=== PATIENT | male | born 1995 | race Caucasian/White ===

== ENCOUNTER → 2023-05-26 | Outpatient (CLI) | payer OTHER ==
[~2023-05-26] MED LIST: SODIUM CHLORIDE 0.9% 500 ML 500 ML in EMPTY BAG 1 BAG IV PRN
[2023-05-26 08:17] VITALS: BP 109/70; PULSE 80; RESP 16; TEMP 98.4
[2023-05-26 08:40] LABS: Anisocytosis Slight; Basophils # (A) 0.1 k/uL (0-0.2); Basophils % (A) 1 %; Eosinophils # (A) 0.3 k/uL (0-0.7); Eosinophils % (A) 3 %; Lymphocytes # (A) 2.5 k/uL (1.0-4.8); Lymphocytes % (A) 27 %; MCH 28.1 pg (25.0-35.0); MCHC 32.4 g/dL (31.0-37.0); MCV 86.8 fL (80.0-100.0); Mean Platelet Volume 7.7; Monocytes # (A) 0.7 k/uL (0-1.0); Monocytes % (A) 8 %; Neutrophils # (A) 5.7 k/uL (1.3-7.7); Neutrophils % (A) 60 %; Platelet Count 223 k/uL (150-450); RBC 6.82 m/uL (4.30-5.90); RDW 16.5 % (11.5-15.5); WBC 9.4 k/uL (3.8-10.6)
[2023-05-26 08:44] LABS: HCT 59.2 % (39.0-53.0); HGB 19.2 gm/dL (13.0-17.5)
== END ==
LOC: PROCWHC3 08:03
PROVIDERS: ATTEND Internal Medicine
DX: D75.1 Secondary polycythemia (principal)
CPT/HCPCS: 36415; 85025; 99195

== ENCOUNTER → 2023-09-17 | Outpatient (CLI) | payer OTHER ==
[2023-09-17 09:51] VITALS: BP 146/81; PULSE 87; RESP 15; TEMP 97.9
[2023-09-17 09:57] LABS: Anisocytosis Slight; Basophils # (A) 0.1 k/uL (0-0.2); Basophils % (A) 2 %; Eosinophils # (A) 0.3 k/uL (0-0.7); Eosinophils % (A) 4 %; Lymphocytes # (A) 2.4 k/uL (1.0-4.8); Lymphocytes % (A) 26 %; MCH 27.5 pg (25.0-35.0); MCHC 32.3 g/dL (31.0-37.0); Mean Platelet Volume 7.4; Monocytes # (A) 0.5 k/uL (0-1.0); Monocytes % (A) 5 %; Neutrophils # (A) 5.7 k/uL (1.3-7.7); Neutrophils % (A) 62 %; Platelet Count 241 k/uL (150-450); RDW 16.1 % (11.5-15.5); WBC 9.1 k/uL (3.8-10.6)
[2023-09-17 10:02] LABS: HCT 61.1 % (39.0-53.0); HGB 19.8 gm/dL (13.0-17.5)
[2023-09-17 10:10] LABS: RBC 6.66 m/uL (4.30-5.90)
== END ==
LOC: PROCWHC3 09:18
PROVIDERS: ATTEND Internal Medicine
DX: D75.1 Secondary polycythemia (principal)
CPT/HCPCS: 36415; 85025; 99195

== ENCOUNTER → 2023-11-19 | Outpatient (CLI) | payer OTHER ==
[2023-11-19 08:45] LABS: Anisocytosis Slight; Basophils # (A) 0.2 k/uL (0-0.2); Basophils % (A) 2 %; Eosinophils # (A) 0.3 k/uL (0-0.7); Eosinophils % (A) 3 %; Lymphocytes % (A) 23 %; MCH 27.4 pg (25.0-35.0); MCHC 32.3 g/dL (31.0-37.0); Mean Platelet Volume 7.8; Monocytes # (A) 0.4 k/uL (0-1.0); Monocytes % (A) 5 %; Neutrophils # (A) 5.9 k/uL (1.3-7.7); Neutrophils % (A) 66 %; Platelet Count 234 k/uL (150-450); RDW 16.1 % (11.5-15.5); WBC 8.9 k/uL (3.8-10.6)
[2023-11-19 09:03] VITALS: RESP 16; TEMP 98.4
[2023-11-19 09:12] LABS: HCT 59.7 % (39.0-53.0); HGB 19.3 gm/dL (13.0-17.5)
[2023-11-19 09:40] VITALS: BP 120/83; PULSE 81
== END ==
LOC: PROCWHC3 08:16
PROVIDERS: ATTEND Internal Medicine
DX: D75.1 Secondary polycythemia (principal)
CPT/HCPCS: 36415; 85025; 99195

== ENCOUNTER → 2024-03-07 | Outpatient (CLI) | payer OTHER ==
[2024-03-07 09:51] VITALS: RESP 16; TEMP 98.1
[2024-03-07 10:04] LABS: Anisocytosis Slight; Basophils # (A) 0.1 k/uL (0-0.2); Basophils % (A) 2 %; Eosinophils # (A) 0.3 k/uL (0-0.7); Eosinophils % (A) 3 %; Lymphocytes % (A) 23 %; MCH 26.2 pg (25.0-35.0); MCHC 31.3 g/dL (31.0-37.0); MCV 83.8 fL (80.0-100.0); Mean Platelet Volume 7.6; Monocytes # (A) 0.6 k/uL (0-1.0); Monocytes % (A) 7 %; Neutrophils # (A) 5.5 k/uL (1.3-7.7); Neutrophils % (A) 64 %; Platelet Count 259 k/uL (150-450); RDW 16.9 % (11.5-15.5); WBC 8.6 k/uL (3.8-10.6)
[2024-03-07 10:06] LABS: RBC 7.43 m/uL (4.30-5.90)
[2024-03-07 10:08] LABS: HCT 62.3 % (39.0-53.0); HGB 19.5 gm/dL (13.0-17.5)
[2024-03-07 10:59] VITALS: BP 124/67; PULSE 72
== END ==
LOC: PROCWHC3 09:33
PROVIDERS: ATTEND Internal Medicine
DX: D75.1 Secondary polycythemia (principal)
CPT/HCPCS: 36415; 85025; 99195

== ENCOUNTER → 2024-03-16 | Outpatient (CLI) | payer OTHER ==
[2024-03-16 12:26] VITALS: RESP 16
[2024-03-16 12:49] LABS: Anisocytosis Slight; Basophils # (A) 0.2 k/uL (0-0.2); Basophils % (A) 2 %; Eosinophils # (A) 0.2 k/uL (0-0.7); Eosinophils % (A) 2 %; Hypochromasia Slight; Lymphocytes # (A) 2.1 k/uL (1.0-4.8); Lymphocytes % (A) 20 %; MCH 27.9 pg (25.0-35.0); MCHC 32.6 g/dL (31.0-37.0); MCV 85.5 fL (80.0-100.0); Monocytes # (A) 0.7 k/uL (0-1.0); Monocytes % (A) 6 %; Neutrophils # (A) 7.4 k/uL (1.3-7.7); Neutrophils % (A) 69 %; Platelet Count 243 k/uL (150-450); RBC 7.29 m/uL (4.30-5.90); RDW 16.8 % (11.5-15.5); WBC 10.8 k/uL (3.8-10.6)
[2024-03-16 12:51] LABS: HGB 20.3 gm/dL (13.0-17.5)
[2024-03-16 12:52] LABS: HCT 62.3 % (39.0-53.0)
[2024-03-16 14:14] VITALS: BP 121/82; PULSE 83
== END ==
LOC: PROCWHC3 11:30
PROVIDERS: ATTEND Internal Medicine
DX: D75.1 Secondary polycythemia (principal)
CPT/HCPCS: 36415; 85025; 99195

== ENCOUNTER → 2024-05-10 | Outpatient (CLI) | payer OTHER | LOC: PROCWHC3 11:31 | PROVIDERS: ATTEND Internal Medicine | DX: Z53.9 Procedure and treatment not carried out, unspecified reason (principal) ==

== ENCOUNTER → 2024-08-03 | Outpatient (CLI) | payer OTHER ==
[~2024-08-03] MED LIST changes: +SODIUM CHLORIDE 0.9% 250 ML in EMPTY BAG 1 BAG IV PRN
[2024-08-03 10:41] VITALS: RESP 16; TEMP 98.4
[2024-08-03 10:48] LABS: Anisocytosis Slight; Basophils # (A) 0.1 k/uL (0-0.2); Basophils % (A) 1 %; Eosinophils # (A) 0.2 k/uL (0-0.7); Eosinophils % (A) 3 %; Lymphocytes # (A) 1.9 k/uL (1.0-4.8); Lymphocytes % (A) 24 %; MCH 26.9 pg (25.0-35.0); MCHC 32.5 g/dL (31.0-37.0); MCV 82.9 fL (80.0-100.0); Mean Platelet Volume 7.7; Monocytes # (A) 0.4 k/uL (0-1.0); Monocytes % (A) 5 %; Neutrophils % (A) 65 %; Platelet Count 228 k/uL (150-450); RBC 7.08 m/uL (4.30-5.90); WBC 7.7 k/uL (3.8-10.6)
[2024-08-03 10:53] LABS: HCT 58.7 % (39.0-53.0); HGB 19.1 gm/dL (13.0-17.5)
[2024-08-03 11:50] VITALS: BP 127/79; PULSE 65
== END ==
LOC: PROCWHC3 10:17
PROVIDERS: ATTEND Internal Medicine
DX: D75.1 Secondary polycythemia (principal)
CPT/HCPCS: 36415; 85025; 99195

== ENCOUNTER → 2024-09-29 | Outpatient (CLI) | payer OTHER ==
[2024-09-29 07:44] VITALS: RESP 16; TEMP 97.7
[2024-09-29 07:47] LABS: Basophils # (A) 0.1 k/uL (0-0.2); Basophils % (A) 1 %; Eosinophils # (A) 0.3 k/uL (0-0.7); Eosinophils % (A) 4 %; Hypochromasia Slight; Lymphocytes % (A) 23 %; MCH 27.8 pg (25.0-35.0); MCHC 32.9 g/dL (31.0-37.0); MCV 84.6 fL (80.0-100.0); Mean Platelet Volume 7.6; Monocytes # (A) 0.4 k/uL (0-1.0); Monocytes % (A) 5 %; Neutrophils # (A) 5.4 k/uL (1.3-7.7); Neutrophils % (A) 65 %; Platelet Count 216 k/uL (150-450); RDW 15.9 % (11.5-15.5); WBC 8.4 k/uL (3.8-10.6)
[2024-09-29 07:57] LABS: RBC 7.25 m/uL (4.30-5.90)
[2024-09-29 08:00] LABS: HCT 61.3 % (39.0-53.0); HGB 20.1 gm/dL (13.0-17.5)
[2024-09-29 08:31] VITALS: BP 130/84; PULSE 86
== END ==
LOC: PROCWHC3 07:15
PROVIDERS: ATTEND Internal Medicine
DX: D75.1 Secondary polycythemia (principal)
CPT/HCPCS: 36415; 85025; 99195